=== PATIENT | male | born 1965 | race Caucasian/White ===

== ENCOUNTER 2021-06-23 03:11 | Emergency (ER) | payer SELFPAY ==
[~2021-06-23 03:11] MED LIST: IBUPROFEN600 MG PO
== END 2021-06-23 04:22 | disposition home or self-care (01) ==
LOC: ER1 03:11
DX: T63.461A Toxic effect of venom of wasps, accidental (unintentional), initial encounter (principal)
CPT/HCPCS: 90471; 90715; 96372; 99281; J1100

== ENCOUNTER 2021-12-15 12:09 | Emergency (ER) | payer SELFPAY ==
[2021-12-15 13:15] LABS: RED BLOOD COUNT 4.63 M/UL (4.20-5.50); WHITE BLOOD COUNT 10.6 K/UL (4.5-11.0)
[2021-12-15 13:35] LABS: BUN/CREATININE RATIO 12 (0-10)
[2021-12-15] MEDS ORDERED: PROVENTIL HFA6.7 GM INH (16:01)
== END 2021-12-15 16:25 | disposition home or self-care (01) ==
LOC: ER1 12:09
PROVIDERS: Emergency Medicine
DX: R07.2 Precordial pain (principal); K59.00 Constipation, unspecified; I25.10 Atherosclerotic heart disease of native coronary artery without angina pectoris; J44.9 Chronic obstructive pulmonary disease, unspecified; Z20.822 Contact with and (suspected) exposure to COVID-19
CPT/HCPCS: 0240U; 80053; 82550; 82553; 83874; 83880; 84484; 85025; 93005; 99285; Q9967